=== PATIENT | male | born 1995 | race American Indian/Alaskan Native ===

== ENCOUNTER 2018-09-24 22:09 | Emergency (ER) | payer SELFPAY ==
[2018-09-24] MEDS ORDERED: NACL 0.9% 500 ML IR ONE (22:16)
[2018-09-24] MEDS ORDERED: ZOFRAN ONE (22:18)
[2018-09-24] MEDS ORDERED: SUBLIMAZE ONE (22:18)
[2018-09-24] MEDS ORDERED: NACL 0.9% 1000 ML 1,000 ML ONE (22:19)
[2018-09-24] MEDS ORDERED: ZOFRAN IV ONE (22:20)
[2018-09-24] MEDS ORDERED: BOOSTRIX IM ONE (22:20)
[2018-09-24] MEDS ORDERED: SUBLIMAZE IV ONE (22:20)
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
[2018-09-24] MEDS ORDERED: NACL 0.9% 1000 ML 1,000 ML IV ONE (22:21)
[2018-09-24] MEDS ORDERED: NACL 0.9% IR ONE (22:50)
[2018-09-25 00:11] VITALS: BP 126/65
[2018-09-25 00:32] LABS: Hematocrit 40.9 % (35.5-45.6); Hemoglobin 13.8 gm/dl (11.8-15.2); Mean Corpuscular HGB Conc 34 % (32-34); Mean Corpuscular Volume 91 fl (84-94); Platelet Count 112 K/mm3 (140-440); Red Blood Count 4.49 M/mm3 (3.65-5.03); Red Cell Distribution Width 14.5 % (13.2-15.2)
[2018-09-25 00:47] LABS: BUN/Creatinine Ratio 15; Blood Urea Nitrogen 17 mg/dL (9-20); Calcium 8.5 mg/dL (8.4-10.2); Hemolysis Index 48
[2018-09-25 01:58] LABS: Band Neutrophils # (Manual) 0.2 K/mm3; Basophils % (Manual) 0 % (0.0-1.8); RBC Morphology Normal; Total Cells Counted 100
== END 2018-09-25 00:58 | disposition other institution (70) ==
LOC: ED 22:09
DX: T21.21XA Burn of second degree of chest wall, initial encounter (principal); X12.XXXA Contact with other hot fluids, initial encounter; Y93.G3 Activity, cooking and baking; Y92.59 Other trade areas as the place of occurrence of the external cause; Y99.8 Other external cause status
CPT/HCPCS: 36415; 80048; 85007; 85025; 90471; 90715; 96374; 96375; 99291; J2405; J3010; J7030